=== PATIENT | female | born 1985 | race Caucasian/White ===

== ENCOUNTER 2024-12-19 00:32 | Emergency (ER) | payer OTHER ==
[2024-12-19 00:42] VITALS: BMI 25.0
[2024-12-19] MEDS: ACETAMINOPHEN 1000 MG/100 ML BAG IVPB ONE (01:46)
[2024-12-19] MEDS: METOCLOPRAMIDE HCL INJECTION 10 MG/2 ML VIAL IVPB ONE (01:47)
[2024-12-19] MEDS: ONDANSETRON 4 MG/2 ML VIAL IVPUSH ONE (01:47)
[2024-12-19] MEDS: SODIUM CHLORIDE 0.9% 500 ML INFUS.BAG IV ONE (01:47)
[2024-12-19 02:48] LABS: HIV INTERPRETATION NEGATIVE (NEGATIVE)
[2024-12-19] MEDS ORDERED: KETOROLAC TROMETHAMINE 15 MG/ML VIAL ONE (03:22)
[2024-12-19] MEDS: KETOROLAC TROMETHAMINE 15 MG/ML VIAL IVPUSH ONE (03:35)
[2024-12-19 04:52] VITALS: BP 112/72; PULSE 68; RESP 14; TEMP 98
[2024-12-19 10:50] LABS: HCV DIAGNOSTIC IN-HOUSE W/RFLX NON-REACTIVE (NONREACTIVE)
== END 2024-12-19 04:52 | disposition home or self-care (01) ==
LOC: JER 00:32
PROC: 3E033NZ Introduction of Analgesics, Hypnotics, Sedatives into Peripheral Vein, Percutaneous Approach (ICD-10-PCS; principal; 2024-12-19)
PROC: 3E0333Z Introduction of Anti-inflammatory into Peripheral Vein, Percutaneous Approach (ICD-10-PCS; 2024-12-19)
PROC: 3E033GC Introduction of Other Therapeutic Substance into Peripheral Vein, Percutaneous Approach (ICD-10-PCS; 2024-12-19)
PROC: 3E033GC Introduction of Other Therapeutic Substance into Peripheral Vein, Percutaneous Approach (ICD-10-PCS; 2024-12-19)
PROC: 3E033GC Introduction of Other Therapeutic Substance into Peripheral Vein, Percutaneous Approach (ICD-10-PCS; 2024-12-19)
DX: R51.9 Headache, unspecified (principal); R11.0 Nausea; J34.89 Other specified disorders of nose and nasal sinuses
CPT/HCPCS: 36415; 70450-TC; 86803; 87389; 99285-25